=== PATIENT | male | born 1975 | race Caucasian/White ===

== ENCOUNTER 2020-03-17 23:37 | Emergency (ER) | payer OTHER ==
[2020-03-17 23:56] VITALS: BP 152/84; PULSE 87; TEMP 97.1
[2020-03-18] MEDS ORDERED: DIPHTH,PERTUSS(ACELL),TET 0.5 ML DISP.SYRIN IM ONE ×2 (00:05→00:07)
[2020-03-18] MEDS ORDERED: BACITRACIN 15 GM TUBE TOPICAL OINTMENT TP ONE (01:39)
== END 2020-03-18 01:49 | disposition home or self-care (01) ==
LOC: JER 23:37
PROC: 3E0234Z Introduction of Serum, Toxoid and Vaccine into Muscle, Percutaneous Approach (ICD-10-PCS; principal; 2020-03-18)
DX: S00.81XA Abrasion of other part of head, initial encounter (principal); M25.561 Pain in right knee; M79.644 Pain in right finger(s); V87.7XXA Person injured in collision between other specified motor vehicles (traffic), initial encounter
CPT/HCPCS: 70450-TC; 72125-TC; 73130-TC-RT-FY; 73562-TC-RT-FY; 90715; 99285-25